=== PATIENT | male | born 1990 | race Caucasian/White ===

== ENCOUNTER 2019-01-31 23:48 | Emergency (ER) | payer SELFPAY ==
[~2019-01-31] VITALS: Ht 190.5 cm; Wt 81.6 kg
--- NOTE | 2019-02-01 01:10 | NUR ---
Patient in bed, no acute distress noted. VSS.
--- NOTE | 2019-02-01 01:14 | NUR ---
Patient discharged to home in stable conditon. Written and verbal after care instructions given. Patient verbalizes understanding of instructions. Ambulated from ER with stable gait. All belongings with patient.
[2019-02-01 01:15] VITALS: BP 131/70
== END 2019-02-01 01:16 | disposition home or self-care (01) ==
LOC: ER 23:50
DX: M54.42 Lumbago with sciatica, left side (principal)
CPT/HCPCS: A4663